=== PATIENT | female | born 1965 | race Caucasian/White ===

== ENCOUNTER 2021-11-25 10:10 | Outpatient (CLI) | payer BC, SELFPAY ==
--- NOTE | 2021-11-25 10:15 | CRLHL7_ITS ---
For Patients: As a result of the Century Cures Act, medical imaging exams and procedure reports are released immediately into your electronic medical record. You may view this report before your referring provider. If you have questions, please contact your health care provider. INDICATION: DYSPNEA,STRIDOR TECHNIQUE: Modified barium swallow. Fluoroscopic time 1 minutes 6 seconds. COMPARISON: None FINDINGS/IMPRESSION: Anatomical structures are normal. Swallowing mechanism appears within normal limits. No episodes of penetration or aspiration. No significant findings. Dictated by Tyrone Man MD @ 11/25/2021 11:55:11 AM (Electronically Signed)
--- NOTE | 2021-11-25 10:15 | CRLHL7_ITS ---
For Patients: As a result of the Century Cures Act, medical imaging exams and procedure reports are released immediately into your electronic medical record. You may view this report before your referring provider. If you have questions, please contact your health care provider. Indication: Dyspnea, stridor Technique: Fluoroscopic sniff test. Fluoroscopic time 10 seconds. IMPRESSION: Normal motion of the diaphragm. No paralysis. Dictated by Tyrone Man MD @ 11/25/2021 11:56:22 AM (Electronically Signed)
== END 2021-11-25 10:11 | disposition home or self-care (01) ==
PROVIDERS: PCP Nurse Practitioner Family; Visit Provider Internal Medicine Pulmonary Disease
DX: R06.00 Dyspnea, unspecified (principal); R06.1 Stridor
CPT/HCPCS: 74230; 76000; 92611

== ENCOUNTER 2021-12-15 14:06 | Outpatient (CLI) | payer BC, SELFPAY ==
[2021-12-15] MEDS: PERFLUTREN LIPID MICROSPHERES 2 ML VIAL IV (18:29)
== END 2021-12-15 14:07 | disposition home or self-care (01) ==
LOC: RAD 14:06
PROVIDERS: PCP Nurse Practitioner Family; Visit Provider Internal Medicine Pulmonary Disease
DX: R06.00 Dyspnea, unspecified (principal); R06.1 Stridor
CPT/HCPCS: 93306; Q9957

== ENCOUNTER 2023-08-16 09:10 | Outpatient (CLI) | payer BC, SELFPAY ==
--- OUTSIDE RECORDS SUMMARY | 2023-08-16 09:14 | XMS_ITS | Encounter Summary ---
Author Organization [facility] er Address [address] [place] [address] Care Team Providers Care Aquatics Director Name Role Phone None, Pcp Primary Care Provider Unavailabl e Reason for Visit * Reason Onset Date Comments Follow-up 12/22/2019 Encounter Details Date Type Department Care Team ([facility] st Contact Info) Description 12/22/2019 Telephone [facility] Medical/Surgical [address] [place] [id number] Ángela Strange RN [address] [place] [phone] Follow-up Social History Tobacco Use Types Packs/Day Years Used Date Smoking Tobacco: Never Smokeless Tobacco: Never Alcohol Use Standard Drinks/Week Comments Never 0 (1 standard drink = 0.6 oz pur e alcohol) AUDIT-C Answer Date Recorded Q1: How often do you have a drink containing alc ohol? Never 12/20/2019 Average Number of Drinks Not on file 020 Frequency of Binge Drinking Not on file 11/2019 Sex and Gender Information Value Date Recorded Sex Assigned at Not on file Gender Identity Not on file Sexual Orientation Not on file COVID-19 Exposure Response Date Recorded In the last month, have you been in contact with someone who was confirmed or suspected to have Coronavirus / COVID-19? No / Unsure 12/20/2019 10:19 AM CDT documented as of this encounter Plan of Treatment Not on file documented as of this encounter Visit Diagnoses Not on filedocumented in this encounter Care Teams Aquatics Director Relationship Specialty Start Date End Date None, Pcp [address] [place] [address] PCP - General Instrument Worker 9/28/20 documented as of this encounter
--- OUTSIDE RECORDS SUMMARY | 2023-08-16 09:14 | XMS_ITS | Clinical Summary ---
Author Organization [facility] Address [place], [place] [address] Care Team Providers Care Briquetting Machine Operator Name Role Phone Zuleyka Burden NP Primary Care Provider Rachel vailable Allergies No known active allergies Medications Medication Sig Dispensed Refills Start Date End Date Status FISH OIL 1,000 MG CAP daily 0 10/03/2007 Act nitza multivitamin (MVI) tablet take 1 tablet by oral route once daily with food 0 02/21/2009 Active codeine-guaifenesin (ROBITUSSIN AC) 10-100 mg/5 mL syrupIndications:Coug h take 10 ml by oral route at bedtime as needed 6 ounces 0 02/21/2009 Active Active Problems No known active problems Immunizations Name Administration Dates Next Due Td (Age >=7 Years) 01/18/2000 Family History Medical History Relation Name Comments Heart Disease Maternal Grandfather Diabetes Maternal Grandmother Heart Disease Maternal Grandmother Relation Name Status Comments Maternal Grandfather Maternal Grandmother Social History Tobacco Use Types Packs/Day Years Used Date Smoking Tobacco: Never Alcohol Use Standard Drinks/Week Comments Not Asked 0 (1 standard drink = 0.6 oz pur e alcohol) Sex and Gender Information Value Date Recorded Sex Assigned at Not on file Gender Identity Not on file Sexual Orientation Not on file Obstetrics History Last Filed Vital Signs Vital Sign Reading Time Taken Comments Blood Pressure 147/75 02/03/2021 3:45 AM FOOD SERVICE AIDE Pulse 81 02/03/2021 3:45 AM FOOD SERVICE AIDE Temperature 37 ??C (98.6 ??F) 02/03/2021 3:45 AM FOOD SERVICE AIDE Respiratory Rate 24 02/03/2021 3:45 AM FOOD SERVICE AIDE Oxygen Saturation 94% 02/03/2021 3:45 AM FOOD SERVICE AIDE Inhaled Oxygen Concentration - - Weight 113.8 kg (250 lb 12.8 oz) 02/03/2021 3:45 AM FOOD SERVICE AIDE Height 177.8 cm (5' 10) 02/03/2021 3:45 AM FOOD SERVICE AIDE Body Mass Index 35.99 02/03/2021 3:45 AM FOOD SERVICE AIDE Plan of Treatment Health Maintenance Due Date Last Done Comments Tdap 07/08/1974 Depression screening for age 12+ 1975 HIV for age 15-65 07/08/1978 BMI (ht and wt on same day) for age 18+ 07/08/1981 Hepatitis C screening for ag e 18-79 07/08/1981 Pap test for age 21-65 07/08/1984 Colonoscopy through age 75 07/08/2008 Mammogram for age 45-75 07/08/2008 05/24/19 08, 05/17/2007 Lipids for age 45-75 05/13/2012 05/14/2007 Zoster (shingles) series for age 50+ (1 of 2) 07/08/2013 Tetanus booster 06/08/2021 06/09/2011, 01/18/2000 COVID-19 vaccine series (2022-24 season) 2022 Influenza for age 50-64 11/12/2023 Pneumococcal series for age 6-64 Aged Out No longer eligible b ased on patient's age to complete this topic Procedures Procedure Name Priority Date/Time Associated Diagnosis Comments SCAN-MAMMOGRAPHY REPORT 05/24/2007 12:00 AM CDT LIPID PANEL Routine 05/14/2007 11:38 AM FOOD SERVICE AIDE Elevated Blood Pressure W/O Htn from Last 3 Months or Most Recently Relevant to Health Maintenance Results * SCAN-MAMMOGRAPHY REPORT (05/24/2007 12:00 AM CDT) Anatomical Region Laterality Modality Other Narrative Procedure Note Scanner - 05/24/2007 12:00 AM CDT Scanner OTHER * LIPID PANEL (05/14/2007 11:38 AM FOOD SERVICE AIDE) CHOLESTEROL,TOTAL 141 110 - 199 mg/dL [facility] TRIGLYCERIDES 132 <150 mg/dL [facility] HDL CHOLESTEROL 69 >40 mg/dL [facility] CHOL/HDL RATIO 2.04 <4.51 [facility] LDL CHOLESTEROL 46 <131 mg/dL [facility] PATIENT STATUS Fasting [facility] Blood specimen (specimen) BLOOD SPECIMEN / Unknown 05/14/2007 11:38 AM FOOD SERVICE AIDE 05/14/2007 11:32 AM FOOD SERVICE AIDE Onur Rosales MD CHEMISTRY [facility] [address] [place] [address] from Last 3 Months or Most Recently Relevant to Health Maintenance Care Teams Briquetting Machine Operator Relationship Specialty Start Date End Date Zuleyka Burden NP [address] [place] [address] PCP - General Emergency Medicine 12/15/21
--- OUTSIDE RECORDS SUMMARY | 2023-08-16 09:14 | XMS_ITS | Clinical Summary ---
Author Organization [facility] er Address [address] [place] [address] Care Team Providers Care Air Battle Manager Name Role Phone None, Pcp Primary Care Provider Unavailabl e Allergies Active Allergy Reactions Criticality Noted Date Comments Oxycodone-Acetaminophen Rash 12/09/2019 Full body rash Medications Medication Sig Dispensed Refills Start Date End Date Status albuterol HFA (PROVENTIL HFA;VENTOLIN HFA) 108 (90 Base) MCG/ACT inhaler Inhale 2 puffs every 6 (six) hours if needed for wheezing Active MULTIPLE VITAMIN PO Take 1 tablet by mouth 1 (one) time each day Active Active Problems Problem Noted Date Diagnosed Date COVID-19 01/30/2021 Resolved Problems Problem Noted Date Diagnosed Date Resolved Date Ankle instability, unspecified laterality 12/20/2019 12/21/2019 Social History Tobacco Use Types Packs/Day Years [...] on file Sexual Orientation Not on file Last Filed Vital Signs Vital Sign Reading Time Taken Comments Blood Pressure 136/80 02/09/2022 8:47 AM FOURDRINIER MACHINE OPERATOR Pulse 90 02/09/2022 8:47 AM FOURDRINIER MACHINE OPERATOR Temperature 36.4 ??C (97.5 ??F) 02/09/2022 8:47 AM CS T Respiratory Rate 16 02/09/2022 8:47 AM FOURDRINIER MACHINE OPERATOR Oxygen Saturation 96% 02/09/2022 8:47 AM FOURDRINIER MACHINE OPERATOR Inhaled Oxygen Concentration - - Weight 117 kg (258 lb 14.9 oz) 01/31/2021 4:31 P M FOURDRINIER MACHINE OPERATOR Height 174 cm (5' 8.5) 01/31/2021 4:31 PM FOURDRINIER MACHINE OPERATOR Body Mass Index 38.79 01/31/2021 4:31 PM FOURDRINIER MACHINE OPERATOR Plan of Treatment Health Maintenance Due Date Last Done Comments CT Colonography 1963 Colonoscopy 1963 Colorectal Cancer Screening 1963 FIT-DNA 1963 Mammogram 1963 Pap Smear 1963 Sigmoidoscopy 1963 iFOBT 1963 DTaP,Tdap,and Td Vaccines (1 - Tdap) 06/10/2011 06/09/2011, 01/18/2000 Zoster Vaccines (1 of 2) 07/08/2013 COVID-19 Vaccine (2022-2 4 season) 2022 Influenza Vaccine (Season Ended) 2023 HPV Vaccines Aged Out No longer eligi ble based on patient's age to complete this topic Pneumococcal Vaccine: Pediatrics (0 to 5 Years) and At-Risk Patients (6 to 64 Years) Aged Out No longer eligible b ased on patient's age to complete this topic Medical Devices Implanted Type Area Ios Developer Device Identifier Shelf Expiration Date Model / Serial / Lot Piton Fixation Implant [id number] Implanted:Qty: 2 on 12/20/2019 by Norm Muniz DPM at [facility] Right: Ankle 07/05/2023 [id number] / / [id number] Advance Directives For more information, please contact: [phone] * Full Code (Latest Code Status on File) Date Activated Date Inactivated Comments 12/20/2019 4:14 PM 12/21/2019 12:26 PM Care Teams Air Battle Manager Relationship Specialty Start Date End Date None, Pcp [address] [facility] [place] [address] PCP - General Cover Operator 12/09/19
--- OUTSIDE RECORDS SUMMARY | 2023-08-16 09:14 | XMS_ITS | Clinical Summary ---
Author Organization [facility] Address [address] [place] [address] Care Team Providers Care Firmware Architect Name Role Phone Unavailable Primary Care Provider Unavailabl e Source Comments You are receiving this document as you are listed as the primary care provider,follow-up provider, or the patient has been referred to you for consultation.This is in compliance with the Medicare andMedicaid EHR Incentive Program,which states Providers who transition their patient to another setting of careor provider of care or refers their patient to another provider of care shouldprovide summary care record for each transition of care or referral. [facility] Allergies No known active allergies Medications No known medications Active Problems Problem Noted Date Diagnosed Date Mallet finger 04/14/2016 Overview: Mallet finger, left ring finger Social History Tobacco Use Types Packs/Day Years Used Date Smoking Tobacco: Never Sex and Gender Information Value Date Recorded Sex Assigned at Not on file Gender Identity Not on file Sexual Orientation Not on file Plan of Treatment Health Maintenance Due Date Last Done Comments Cervical Cancer Screening Due 1965 Colon Cancer Screening Plan Due 1965 Hep C Screening (Preventive Services) 1963 Mammogram 1963 HIV Screening (Preventive Services) 1979 Adult Preventive Visit 07/08/1981 DTaP/Tdap/Td (1 - Tdap) 07/08/1982 Cholesterol 07/08/2008 Zoster/Shingles (1 of 2) 07/08/2013 COVID-19 Vaccine (2022-2 4 season) 2022 Influenza (Season Ended) 2023 HepA Aged Out No longer eligi ble based on patient's age to complete this topic HepB Aged Out No longer eligi ble based on patient's age to complete this topic Hib Aged Out No longer eligi ble based on patient's age to complete this topic IPV (Polio) Aged Out No longer eligi ble based on patient's age to complete this topic MCV4 Aged Out No longer eligi ble based on patient's age to complete this topic Pneumococcal Aged Out No longer eligi ble based on patient's age to complete this topic JOSE MARTIN PILLAI [id number]
== END 2023-08-16 09:11 | disposition home or self-care (01) ==
PROVIDERS: PCP Nurse Practitioner Family; Visit Provider Family Medicine
DX: R42 Dizziness and giddiness (principal); R03.0 Elevated blood-pressure reading, without diagnosis of hypertension
CPT/HCPCS: 80053; 84443

== ENCOUNTER 2024-03-14 09:26 | Outpatient (CLI) | payer BC, SELFPAY | END 2024-03-14 09:27 | disposition home or self-care (01) | PROVIDERS: PCP Nurse Practitioner Family; Visit Provider Nurse Practitioner Family | DX: D68.51 Activated protein C resistance (principal); Z13.228 Encounter for screening for other metabolic disorders | CPT/HCPCS: 80053; 81241; 85025 ==

== ENCOUNTER 2024-11-15 12:05 | Outpatient (CLI) | payer BC, SELFPAY | END 2024-11-15 12:06 | disposition home or self-care (01) | PROVIDERS: PCP Nurse Practitioner Family; Visit Provider Nurse Practitioner Family | DX: R03.0 Elevated blood-pressure reading, without diagnosis of hypertension (principal); R53.83 Other fatigue; E66.9 Obesity, unspecified; D68.51 Activated protein C resistance; R79.89 Other specified abnormal findings of blood chemistry; H91.90 Unspecified hearing loss, unspecified ear; L30.9 Dermatitis, unspecified | CPT/HCPCS: 80053; 82306; 82728; 84443; 85025; 85651; 86140; 86618; 87468; 87469; 87484; 87798 ==

== ENCOUNTER 2024-12-16 07:53 | Outpatient (CLI) | payer BC, SELFPAY | END 2024-12-16 07:54 | disposition home or self-care (01) | PROVIDERS: PCP Nurse Practitioner Family; Visit Provider Nurse Practitioner Family | DX: R53.83 Other fatigue (principal); R79.89 Other specified abnormal findings of blood chemistry | CPT/HCPCS: 81256; 82728; 83540; 85018; 86038 ==